=== PATIENT | female | born 1955 | race Caucasian/White ===

== ENCOUNTER 2016-09-27 09:42 | Inpatient (IN) | payer OTHER ==
--- NOTE | ~2016-09-27 | CN ---
Consultation Report [facility] [address] [place]. [address] NAME: HAROON PRITCHETT : 51 STATUS : ADM IN PAT#: [id number] AGE: 61 ADM/REG DATE : 09/27/16 MR#: [id number] REPORT SERV DATE: 10/02/16 DICTATED BY: JR. CAMPO WILLIAM JOHN DATE: 10/02/16 REPORT STATUS : Draft TRANSCRIBED BY: MARQUES DATE: 10/02/16 INTERNAL MEDICINE CONSULTATION DATE OF CONSULTATION: REASON FOR REQUEST: Diabetes management. HISTORY OF PRESENT ILLNESS: This is a 61-year-old female with history of diabetes mellitus type 2 admitted on 09/27/[address] Sanchez for an elective cardiac catheterization after a positive stress test done outpatient. Catheterization was performed on 09/27/2016 and showed greater 95% LAD proximal lesion and an 80% mid right coronary artery lesion non-amenable to catheter based intervention due to tortuous vessels. The patient was evaluated by Dr. Naik of Cardiovascular Thoracic surgery and underwent bypass grafting on 10/01/2016 with left internal mammary to LAD, a saphenous vein graft to the diagonal 1, and a saphenous vein graft to the right coronary artery. Intraoperative transesophageal echocardiogram showed good ejection fraction. The patient was extubated on 10/01/2016 and currently is vomiting when eating. The patient has a poor appetite and has no other complaints. As an outpatient, the patient is on 50 units of glargine insulin plus sliding scale insulin. PAST MEDICAL HISTORY: Includes: 1. Diabetes mellitus type 2. 2. Hypertension. 3. Hypercholesterolemia. 4. Gastroesophageal reflux disease. 5. Hiatal hernia. 6. History of hysterectomy. 7. Left carotid disease. 8. Anxiety. HOME MEDICATIONS: Included: 1. Aspirin 325 daily. 2. BuSpar 7.5 mg one-half tablet twice a day. 3. Zyrtec 10 mg at the hour of sleep. 4. Celexa 10 mg at the hour of sleep. 5. Estradiol 0.1 mg topically weekly. 6. NovoLog sliding scale. 7. Glargine 50 units at the hour of sleep. 8. Imdur 15 mg daily. 9. Metformin 1 g twice a day. 10.Metoprolol 25 b.i.d. 11.Multivitamin one tablet daily. 12.Omeprazole 40 twice a day. 13.Ramipril 5 mg at the hour of sleep. Consultation Report [facility] [address] [place]. [address] NAME: HAROON PRITCHETT : 51 STATUS : ADM IN PAT#: [id number] AGE: 61 ADM/REG DATE : 09/27/16 MR#: [id number] REPORT SERV DATE: 10/02/16 DICTATED BY: JR. CAMPO WILLIAM JOHN DATE: 10/02/16 REPORT STATUS : Draft TRANSCRIBED BY: MARQUES DATE: 10/02/16 14.Simvastatin 40 mg at the hour of sleep. ALLERGIES: PENICILLIN, MORPHINE, CODEINE, AND LEVAQUIN. FAMILY HISTORY: Father at age 61 of coronary artery disease and myocardial infarction. Mother at age 72 of sudden thought to be due to a stroke, also had hypertension. SOCIAL HISTORY: She is . Lives in [place] with her . She has a 21 pack year smoking history quitting 9 years ago. She denies alcohol or illicit drugs. She is a worker at a [employer]. REVIEW OF SYSTEMS: Review of systems is negative in all 12 systems reviewed except does admit to sore throat after intubation. Also has occasional palpitations, nausea, vomiting, depression without suicidal or homicidal ideation. PHYSICAL EXAMINATION: VITAL SIGNS: Temperature 99.2, blood pressure 115/62, heart rate 72, respiratory rate 23 on 5 L nasal cannula. Central venous pressure is 13. She is on an insulin drip at 6 units/hour and off pressors. GENERAL: The patient is alert and oriented, in no acute distress. HEENT: Her pupils are equal, round, and reactive to light. Extraocular motion intact. Sclerae anicteric. Oropharynx clear. NECK: Supple. There is no jugular venous distention, thyromegaly, or bruits. LUNGS: Scattered crackles. There was a chest tube on the left and a sub-xiphoid drain in place. ABDOMEN: Abdomen is soft, obese, nontender. Bowel sounds present. EXTREMITIES: Show no clubbing, cyanosis, edema. She has support hose on. NEUROLOGIC: Cranial nerves 2-12 intact. Strength and sensation were full and equal throughout. LYMPHATICS: Lymph node survey is negative in cervical and supraclavicular regions. PSYCHIATRIC: Mood and affect were appropriate. LABORATORY DATA: White count of 18.7, hemoglobin 10, platelets 258. Sodium 145, potassium 4.6, chloride 112, bicarb 25, BUN 17, creatinine 1, glucose 144, magnesium 2.2. Calcium 8.8. Chest x-ray showed vascular congestion. ASSESSMENT AND PLAN: A 61-year-old female with: 1. Diabetes mellitus type 2 on 50 units of glargine insulin home, not eating and vomiting with meals currently, therefore hesitate to convert to subcu insulin until reliable diet is established. We will continue insulin drip for tonight and readdress in the morning. 2. Hypertension. Continue current medications. Consultation Report [address] [place]. [address] NAME: HAROON PRITCHETT : 51 STATUS : ADM IN [facility]#: [id number] AGE: 61 ADM/REG DATE : 09/27/16 MR#: [id number] REPORT SERV DATE: 10/02/16 DICTATED BY: JR. CAMPO WILLIAM JOHN DATE: 10/02/16 REPORT STATUS : Draft TRANSCRIBED BY: MARQUES DATE: 10/02/16 3. Dyslipidemia. Continue statin. I will follow this patient with you. WJF/MARQUES Wade Campo Jr, MD / [id number] CC: Magen Sanchez MD
--- NOTE | ~2016-09-27 | CN ---
Consultation Report [facility] [address] [place]. [address] NAME: HAROON PRITCHETT : 51 STATUS : ADM IN PAT#: [id number] AGE: 61 ADM/REG DATE : 09/27/16 MR#: [id number] REPORT SERV DATE: 09/29/16 DICTATED BY: GARRISON RODRIGUEZ DATE: 09/29/16 REPORT STATUS : Draft TRANSCRIBED BY: MODL DATE: 09/29/16 CONSULTATION DATE OF CONSULTATION: 09/29/2016 REASON FOR CONSULTATION: Coronary artery disease requiring coronary revascularization. BRIEF HISTORY: This is a 61-year-old obese white female with a history of insulin-dependent diabetes mellitus type 2. In August of this year, she began having exertional chest pressure and fatigue and was sent for a cardiac stress test. Cardiac stress test performed 08/2016 revealed SVT, but no chest pain and moderate risk nuclear stress. Because of this, she was brought in for elective cardiac catheterization. This was performed on 09/27/2016 and she was found to have significant disease involving the left anterior descending artery at the first diagonal takeoff. There is also significant disease in the right coronary artery. Because of this, we were asked to see her for consideration for coronary artery revascularization. PAST MEDICAL HISTORY: Includes hypertension, hyperlipidemia, obesity with BMI of 36, insulin dependent diabetes mellitus type 2, gastroesophageal reflux disease, hiatal hernia, history of tobacco abuse, moderate left carotid disease, and anxiety. PAST SURGICAL HISTORY: Includes hysterectomy. FAMILY HISTORY: Significant for her father having a heart attack at age 50 and dying at 61 as a result of heart problems. Her mother had a sudden at age 72 from stroke and had hypertension. She had a brother who had mesothelioma at age 59 as well as heart failure. SOCIAL HISTORY: The patient is and lives here locally. She did smoke for 21-pack years, but quit approximately nine years ago. She denies any alcohol use or other drug use. ALLERGIES: PENICILLIN, LEVAQUIN, MORPHINE, AND CODEINE. HOME MEDICATIONS: Include omeprazole 40 mg p.o. twice daily, simvastatin 40 mg p.o. daily, BuSpar 7.5 mg one-half tablet three times daily, Celexa 10 mg daily, ramipril 5 mg daily, Zyrtec 10 mg daily, aspirin 325 mg daily, multivitamin one p.o. daily, NovoLog subcu per sliding scale before meals, metformin 500 mg p.o. twice daily, estradiol patch 0.1 mg twice weekly as well as Basaglar insulin once daily. REVIEW OF SYSTEMS: Significant for fatigue and chest pain, indigestion, heart fluttering. Complete 12-point review of systems done. All other systems negative except the above-mentioned pertinent positives in history of present illness. PHYSICAL EXAMINATION: Consultation Report [address] [place]. [address] NAME: HAROON PRITCHETT : 51 STATUS : ADM IN PAT#: [id number] AGE: 61 ADM/REG DATE : 09/27/16 MR#: [id number] REPORT SERV DATE: 09/29/16 DICTATED BY: GARRISON RODRIGUEZ DATE: 09/29/16 REPORT STATUS : Draft TRANSCRIBED BY: MARQUES DATE: 09/29/16 GENERAL: A 61-year-old white female, alert, in no acute distress. Appears her stated age. CONSTITUTIONAL/VITAL SIGNS: Normal sinus rhythm in 60s and 70s. Afebrile, blood pressure 156/69, ox saturation 95% on room air. HEAD, EARS, EYES, NOSE, AND THROAT: Normocephalic, atraumatic. Pupils equal, round and reactive to light. Ears, nose, and throat without drainage, lesions, or exudates noted. NECK: Supple. No lymphadenopathy, JVD, or bruits noted. Trachea midline. No obvious goiter. CHEST: Symmetrical bilateral movement. No chest wall deformities noted. CARDIOVASCULAR: Revealed regular rate and rhythm. S1, S2. No gallop, murmur, or rub. RESPIRATORY: Lungs are clear to auscultation anteriorly bilaterally. ABDOMEN: Soft, nontender, nondistended. Positive bowel sounds in all four quadrants. No hepatosplenomegaly. : The patient voids without difficulty, otherwise deferred. MUSCULOSKELETAL: Without obvious kyphosis or scoliosis noted. No significant bony abnormalities. Normal range of motion in all four extremities. NEURO: All 12 cranial nerves intact. No focal neurologic deficits noted. She is alert, oriented x3. SKIN: Warm and dry with no breakdown or lesions noted. Normal turgor. EXTREMITIES: Without clubbing, cyanosis, or edema. 3+ pulses bilaterally. PSYCH: Normal mood and affect. Pleasant. Answers all questions appropriately. HEMATOLOGIC/LYMPHATIC: Without any obvious petechiae or ecchymosis noted. There is no supraclavicular, axillary, or cervical lymphadenopathy noted. DATA: Labs dated 09/29/2016, sodium 139, potassium 4.2, BUN 11, creatinine 0.81. White blood count 13.4, hemoglobin 11.4, hematocrit 35.6, platelets 285. Cardiac cath performed 09/27/2017 showing significant disease involving the left anterior descending artery at the takeoff of the first diagonal branch. There is also significantly diseased right coronary artery. There is normal left ventricular ejection fraction. Cardiac stress test dated 09/09/2016 showing no anginal chest pain. No EKG changes, but distal anterior ischemia with left ventricular ejection fraction 60%. Overall moderate risk study. Carotid ultrasound performed 09/09/2016 showing grade 2 disease in the left carotid and grade 1 in the right carotid. Echocardiogram performed 09/09/2016 showing no significant valvular regurgitation, left ventricular ejection fraction of 55%. STS risk score specific to this patient, mortality 0.8-6%, any mortality morbidity 10.098%, long length of stay 4.49% short length of stay 45.6%, renal failure 1.71%, permanent stroke 0.7%, deep sternal wound 0.8%, respiratory failure 3.44%, prolonged ventilation 0.7%. PROBLEM LIST: 1. Two-vessel coronary artery disease with preserved left ventricular ejection fraction. 2. Insulin-dependent diabetes mellitus, type 2. 3. Hypertension. 4. Hyperlipidemia. Consultation Report [address] [place]. [address] NAME: HAROON PRITCHETT : 51 STATUS : ADM IN [facility]#: [id number] AGE: 61 ADM/REG DATE : 09/27/16 MR#: [id number] REPORT SERV DATE: 09/29/16 DICTATED BY: GARRISON RODRIGUEZ DATE: 09/29/16 REPORT STATUS : Draft TRANSCRIBED BY: MODDiana DATE: 09/29/16 5. Obesity. 6. Gastroesophageal reflux disease with hiatal hernia. 7. Anxiety. IMPRESSION AND PLAN: A 61-year-old obese white female with insulin-dependent diabetes, hypertension, and hyperlipidemia, who has been having exertional chest pain as well as fatigue. Cardiac cath shows two-vessel coronary artery disease with preserved left ventricular ejection fraction. There is no significant valvular disease by echocardiogram. STS risk score specific to her were reviewed with her as noted above. The surgery was discussed with her in detail, and she is willing to proceed. We will go ahead and start preoperative preps as well as strict hemoglobin A1c and iron saturations. We will tentatively plan for surgery for this Friday barring no other contraindication. DICTATED BY: MALENA Bartlett/MARQUES Garrison Rodriguez MD / [id number] CC: MD Shaun Pelaez M.D.
--- NOTE | ~2016-09-27 | OP ---
Record Of Count includes the [facility] [address] [facility] [place]. [address] NAME: HAROON PRITCHETT : 51 STATUS : ADM IN PAT#: [id number] AGE: 61 ADM/REG DATE : 09/27/16 MR#: [id number] REPORT SERV DATE: 10/02/16 DICTATED BY: GARRISON RODRIGUEZ DATE: 10/01/16 REPORT STATUS : Draft TRANSCRIBED BY: MODL DATE: 10/01/16 DATE OF PROCEDURE: 10/01/2016 SURGEON: Garrison Rodriguez MD DATA PROCESSING CONTROL CLERK: Chani Pelayo. ANESTHESIOLOGIST: Liam Shahid MD. PREOPERATIVE DIAGNOSES: 1. Unstable angina. 2. Severe two-vessel coronary artery disease. 3. Diabetes mellitus. 4. Hypertension. 5. Hyperlipidemia. 6. Obstructive sleep apnea. 7. Chronic anemia. 8. Morbid obesity. POSTOPERATIVE DIAGNOSES: 1. Unstable angina. 2. Severe two-vessel coronary artery disease. 3. Diabetes mellitus. 4. Hypertension. 5. Hyperlipidemia. 6. Obstructive sleep apnea. 7. Chronic anemia. 8. Morbid obesity. OPERATION PROCEDURE PERFORMED: 1. Median sternotomy. 2. Extracorporeal circulation. 3. Urgent coronary artery bypass grafting x3, left internal mammary artery, left anterior descending, reverse greater saphenous vein graft to D1, reverse greater saphenous vein graft to RCA. 4. Transesophageal echocardiogram. 5. Endoscopic vein harvest, left leg. 6. Rigid external fixation of the sternum using Acquia SternaLock César system. 7. Prevena dressing placement. COMPLICATIONS: None. TUBES/DRAINS: A 24-[place] Sam to the left pleural space. A 32-[place] Citizen straight mediastinal chest tube. V-wires were placed. POSTOPERATIVE CONDITION: Stable to CVICU. Record Of Count includes the [facility] [address] [facility] [place]. [address] NAME: HAROON PRITCHETT : 51 STATUS : ADM IN PAT#: [id number] AGE: 61 ADM/REG DATE : 09/27/16 MR#: [id number] REPORT SERV DATE: 10/02/16 DICTATED BY: GARRISON RODRIGUEZ DATE: 10/01/16 REPORT STATUS : Draft TRANSCRIBED BY: MODL DATE: 10/01/16 DETAILS OF CARDIOPULMONARY BYPASS: Cross-clamp time 48 minutes. Total cardiopulmonary bypass time was 64 minutes. INTRAOPERATIVE FINDINGS: Echo showed normal EF, trace MR, tiny PFO. Postprocedure, there were no changes. ANATOMIC FINDINGS: These were good targets, good conduit, good ventricle. The MELARA was approximately 2 mm in diameter. The vein was 4 mm to 5 mm in diameter. DETAILS OF CARDIOPULMONARY BYPASS GRAFTIN. Graft #1, left internal mammary artery, left anterior descending, this was 1.75 mm target. 2. Graft #2, reverse greater saphenous vein graft to D1, this was 1.75 mm target. 3. Graft #3, reverse greater saphenous vein graft to distal RCA, this was diminutive RCA harvest, approximately 1.75 mm. There were excellent Dopplers both pre and post protamine. DETAILS OF RIGID EXTERNAL FIXATION OF THE STERNUM: One 100-degree plate was used in the manubrium with four 14-mm screws, two X plates were used in the body of the sternum with eight 14-mm screws apiece. INDICATIONS FOR PROCEDURE: Ms. Pritchett is a 61-year-old female, admitted after workup revealed reversible ischemia on stress test. She underwent heart catheterization and was found to have severe two-vessel disease with LAD bifurcation disease and disease. She was referred for cardiopulmonary bypass. Risks, benefits, and alternatives were discussed with patient including but not limited to, bleeding, infection, stroke, , heart attack, need for future operations. All questions were answered. DETAILS OF PROCEDURE: The patient was brought to the operating room, and placed supine on the operating room table. After satisfactory induction of general endotracheal anesthesia, she was prepped and draped in usual sterile fashion. Working simultaneously, endoscopic vein harvest was performed from the left leg, and median sternotomy was performed. Skin and subcutaneous tissues were divided, clavipectoral fascia was divided. The sternum was divided in the midline. Sternal retractor was placed. Thymic tissue was divided in the midline up to the innominate vein. The pericardium was opened in the midline and T'd at the diaphragm. A Rultract retractor was then placed and the internal mammary artery was harvested in a pedicle fashion from its takeoff into the subclavian vein to the bifurcation of the diaphragm. This was somewhat difficult given the patient's body habitus, given her thick chest wall and ample mammary glands. Once the pedicle was successfully dissected and harvested, systemic heparinization was achieved. After 3 minutes, the pedicle was clipped and divided. The bifurcation of the diaphragm was infiltrated with papaverine. The Rultract retractor was removed. A 24-[place] Sam was placed in the left pleural space and exteriorized. A sternal retractor was placed and a pericardial well was created. Ascending aortic cannulation was achieved at the base of the innominate artery, dual stage venous cannula was placed through pursestring in the right atrial side wall. Antegrade root vent Record Of Operation [facility] [address] [place]. [address] NAME: HAROON PRITCHETT : 51 STATUS : ADM IN [facility]#: [id number] AGE: 61 ADM/REG DATE : 09/27/16 MR#: [id number] REPORT SERV DATE: 10/02/16 DICTATED BY: GARRISON RODRIGUEZ DATE: 10/01/16 REPORT STATUS : Draft TRANSCRIBED BY: MARQUES DATE: 10/01/16 cardioplegia tack was placed. The conduit was brought up and prepared for bypass. The internal mammary artery was brought down through a wide V in the pericardium. The cardiopulmonary bypass was initiated after documentation of an adequate ACT. Targets were inspected and felt to be as mentioned in the findings. The cross-clamp was brought up and the heart was arrested with cold antegrade cardioplegia, switching to cold antegrade cardioplegia every 15 to 20 minutes throughout the remainder of the cross clamp. The grafts were performed as mentioned in the findings. All distal anastomoses were done with 8-0 Surgipro. The heart was filled, the veins were cut to length, spatulated. Proximal aortotomies were performed, enlarged with a 5.2 mm punch in a running continuous anastomosis was performed using 6-0 Prolene. Vein graft markers were placed. Internal mammary artery was brought down through a wide V in the pericardium and was anastomosed to the anterior surface of the LAD using 8-0 Surgipro. The pedicle was attached to the epicardium of the heart in two places. Bulldog was removed and there was excellent Doppler flow in the graft and both proximal and distal to the anastomosis in the LAD. Vein grafts were de-aired. The cross-clamp was removed. Ventricular pacing wires were placed and the patient returned to spontaneous rhythm, was able to be weaned from cardiopulmonary bypass on inotropic support. Protamine was administered. The patient was decannulated. All cannulation sites were oversewn with 4 0 Prolene. There were excellent Doppler signals both pre and post protamine. Thymic tissue was loosely reapproximated over the ascending aorta and the right ventricle. A 32-[place] Citizen chest tube was placed under the sternum. Hemostasis was achieved. The sternum was reapproximated using stainless steel sternal wires, some of these were double wires. After the wires were tightened, mild pectoral flaps were raised in order to allow the plates to be placed. One 100-degree plate was placed in the body of manubrium between wires 2 and 3, two X plates were placed on the body of the sternum between the sternal wires, these were anchored in position using 14 mm screws. The clavipectoral fascia was then reapproximated using running #1 Stratafix, subcutaneous tissues were closed in 3 layers using running #1 Stratafix and the skin was closed using 2-0 Quill. Prevena dressing was placed. The patient was transferred to CVICU in critical stable condition. C/MODL Garrison Rodriguez MD / [id number] CC: MD Magen Hutson MD
--- NOTE | ~2016-09-27 | DS ---
Discharge Summary [facility] [address] [place]. [address] NAME: HAROON PRITCHETT : 51 STATUS : DIS IN PAT#: [id number] AGE: 61 ADM/REG DATE : 09/27/16 MR#: [id number] REPORT SERV DATE: 10/22/16 DICTATED BY: GARRISON RODRIGUEZ DATE: 10/21/16 REPORT STATUS : Draft TRANSCRIBED BY: MARQUES DATE: 10/21/16 Data Collection from hospitalization DISCHARGE DIAGNOSES: 1. Coronary artery disease, status post coronary artery bypass grafting. 2. Hypertension. 3. Hyperlipidemia. 4. Diabetes mellitus. 5. Borderline morbid obesity. 6. Gastroesophageal reflux disease. 7. History of hiatal hernia. 8. Former smoker. CONSULTATIONS: 1. Magen Sanchez MD. 2. Wade Campo Jr, MD. PROCEDURES PERFORMED: 1. Cardiac catheterization and percutaneous coronary intervention on 09/27/2016. 2. Median sternotomy; extracorporeal circulation; urgent coronary artery bypass grafting x3 with left internal mammary artery to the left anterior descending artery, reverse saphenous vein graft to the diagonal 1, reverse greater saphenous vein graft to the right coronary artery; transesophageal echocardiogram; endoscopic vein harvest from the left leg; rigid external fixation of the sternum using Minka SternaLock César System; and Prevena dressing placement on 10/01/2016. 3. Vein mapping of the bilateral lower extremities on 10/01/2016. MEDICATIONS: Aspirin 81 mg daily, Lipitor 40 mg at bedtime, BuSpar half tablet twice a day, Zyrtec 10 mg at bedtime, Celexa 10 mg at bedtime, Plavix 75 mg daily, Vivelle 0.1 mg topically weekly, [place] 10/325 half to every six hours as needed, NovoLog FlexPen as instructed, Lantus 58 units subcutaneously every day at bedtime, Glucophage 1000 mg with breakfast and supper, Lopressor 25 mg twice a day, multivitamins one tablet daily, Prilosec 40 mg twice a day, and Altace 5 mg at bedtime. CONDITION AT DISCHARGE: Stable. DISPOSITION: The patient was discharged home on a low-cholesterol, low-sodium, 1800-calorie cardiac/diabetic diet with activities as instructed. She would follow up with me on 10/29/2016 and would follow up with Dr. Magen Sanchez three weeks following discharge. She would follow up at cardiac rehab on 11/14/2016. HOSPITAL COURSE: This is a 61-year-old female who has a history of insulin-dependent type 2 diabetes mellitus. In August of this year, she began having exertional chest pressure and fatigue and was sent for a cardiac stress test. Cardiac stress test performed in August revealed supraventricular tachycardia, but no chest pain and moderate risk nuclear stress test. It was felt that she would need to undergo an elective cardiac catheterization. She was seen by Dr. Magen Sanchez. The patient's symptoms apparently had been present for several years and that had worsened recently. She had a normal myocardial perfusion imaging Discharge Summary [address] [place]. [address] NAME: HAROON PRITCHETT : 51 STATUS : DIS IN PAT#: [id number] AGE: 61 ADM/REG DATE : 09/27/16 MR#: [id number] REPORT SERV DATE: 10/22/16 DICTATED BY: GARRISON RODRIGUEZ DATE: 10/21/16 REPORT STATUS : Draft TRANSCRIBED BY: MARQUES DATE: 10/21/16 study four years ago. Repeat perfusion study recently was abnormal. At this time, the patient was without chest pain or unusual dyspnea. She was admitted to the hospital for further evaluation and treatment. Upon admission, she was taken to the cardiac garage laborer by Dr. Magen Sanchez where she underwent the above-mentioned procedure. She tolerated this well, and there were no complications. Her cardiac catheterization revealed significant disease involving the left anterior descending artery at the first diagonal takeoff. There was also significant disease in the right coronary artery. It was felt that she would need to undergo coronary artery bypass grafting. On postop day #1, she had no chest pain. Her lungs were clear. Her abdomen was soft and nontender. She had no edema. Plans were being made to proceed with surgical intervention. Metoprolol was increased. She was in a normal sinus rhythm. Heparin drip continued. On 10/01/2016, she underwent vein mapping of the bilateral lower extremities. She was taken to the operating room where she underwent the above-mentioned procedure. She tolerated this well, and there were no complications. The following day, she had no new complaints. She had no edema. She was doing well postoperatively. She was off pressors and inotropes. She was seen by Dr. Wade Campo Jr, regarding diabetes management. The patient had a poor appetite, but no other complaints. As an outpatient, she is on glargine insulin plus sliding scale insulin. Chest x-ray did show some vascular congestion. Insulin drip was going to be continued that evening. We were hesitant to convert to subcu insulin until a reliable diet was established. Her current blood pressure medications were continued as well as her current statin therapy. On 10/03/2016, she had no complaints except for some moderate postsurgical pain. Her current management continued. We encouraged her to increase her ambulation. She still had some nausea, but no vomiting. Blood pressure was controlled. Insulin drip was continued. Adjustments were made to her diabetic regimen. On 10/04/216, she seemed to be eating a little better. IV fluids were continued. We encouraged her to mobilize. Her nausea and vomiting improved. The next day, she was feeling okay. Her pain was controlled. She was in a sinus rhythm. Amiodarone, metoprolol, aspirin, and statin were continued. We encouraged her to increase her activity. Discharge planning was performed. Levemir was increased. On 10/06/2016, she was alert and cooperative. She had no edema. Her white count was 22. She said she was feeling well. She had no dyspnea or chest pain. Discharge instructions were given. Her white count decreased to 14.2. Discharge instructions were given. Due to her improved and stable condition, she was discharged home with the above- stated instructions. Information collected by: Jazmin Haynes I submit the above information as my discharge summary. TG/MODL Garrison Rodriguez MD / [id number] Discharge Summary [address] [address] NAME: HAROON PRITCHETT : 51 STATUS : DIS IN PAT#: [id number] AGE: 61 ADM/REG DATE : 09/27/16 MR#: [id number] REPORT SERV DATE: 10/22/16 DICTATED BY: GARRISON RODRIGUEZ DATE: 10/21/16 REPORT STATUS : Draft TRANSCRIBED BY: MARQUES DATE: 10/21/16 CC: MD Shaun Pelaez M.D.
--- NOTE | ~2016-09-27 | HP ---
History And Physical [address] [place]. [address] NAME: HAROON PRITCHETT : 51 STATUS : REG REF PAT#: [id number] AGE: 61 ADM/REG DATE : 09/27/16 MR#: [id number] REPORT SERV DATE: 09/27/16 DICTATED BY: RICA SANCHEZ DATE: 09/27/16 REPORT STATUS : Draft TRANSCRIBED BY: MODL DATE: 09/27/16 DATE OF ADMISSION: 09/27/2016 CARDIOLOGY ADMISSION HISTORY AND PHYSICAL IDENTIFYING DATA: The patient is a 61-year-old woman with a history of type 2 diabetes. CHIEF COMPLAINT: The patient is admitted following elective cardiac catheterization for angina. HISTORY OF PRESENT ILLNESS: Ms Pritchett is a pleasant 61-year-old woman who was referred to Dr. Agustin Thomas for evaluation of exertional pressure type chest pain. The patient was referred for a myocardial perfusion imaging study which demonstrated anterolateral ischemia. She was therefore referred for cardiac catheterization. The patient's symptoms apparently have been present for several years, but have worsened recently. The patient had a normal myocardial perfusion imaging study four years ago. Her repeat perfusion study performed more recently was abnormal, and therefore, the patient was referred for cardiac catheterization. At this time, the patient is without chest pain or unusual dyspnea. PAST MEDICAL HISTORY: 1. Type 2 diabetes. 2. Hypertension. 3. Dyslipidemia. 4. Borderline morbid obesity. 5. Gastroesophageal reflux disease. 6. History of hiatal hernia. SURGICAL HISTORY: Noncontributory. FAMILY HISTORY: There is a positive family history of early coronary heart disease: The patient's father suffered myocardial infarction at age 50. SOCIAL HISTORY: The patient has a distant history of tobacco use, but currently denies cigarette smoking, alcohol use, or substance use. ALLERGIES: THE PATIENT HAS DOCUMENTED ALLERGIES TO PENICILLIN, MORPHINE, CODEINE, AND LEVOFLOXACIN. HOME MEDICATIONS: 1. Aspirin 325 mg p.o. daily. 2. BuSpar 7.5 mg one-half tablet twice daily. 3. Zyrtec 10 mg p.o. q.h.s. 4. Celexa 10 mg p.o. q.h.s. 5. Estradiol 0.1 mg topical weekly. 6. NovoLog sliding scale insulin. 7. Insulin glargine 50 units subcutaneously q.h.s. History And Physical [facility] [address] [place]. [address] NAME: HAROON PRITCHETT : 51 STATUS : REG REF PAT#: [id number] AGE: 61 ADM/REG DATE : 09/27/16 MR#: [id number] REPORT SERV DATE: 09/27/16 DICTATED BY: RICA SANCHEZ DATE: 09/27/16 REPORT STATUS : Draft TRANSCRIBED BY: MARQUES DATE: 09/27/16 8. Isosorbide mononitrate 15 mg p.o. daily. 9. Metformin 1 g p.o. twice daily. 10.Metoprolol tartrate 25 mg p.o. twice daily. 11.Multivitamin one tablet daily. 12.Omeprazole 40 mg p.o. twice daily. 13.Ramipril 5 mg p.o. q.h.s. 14.Simvastatin 40 mg p.o. q.h.s. REVIEW OF SYSTEMS: A complete 10-system review was performed. This is noncontributory except for the pertinent positives and negatives noted in the history of present illness above. PHYSICAL EXAMINATION: VITAL SIGNS: Temperature is 98.2 degrees Fahrenheit, blood pressure is 154/70 mmHg, respirations 16, oxygen saturation is 96% on room air. GENERAL: The patient is a borderline morbidly obese white woman, in no acute distress. EYES: PERRL, EOMI, clear conjunctiva. HEAD/MNT: NCAT with moist mucous membranes and grossly normal hard and soft palate. NECK: Supple with no obvious thyromegaly or lymphadenopathy CARDIOVASCULAR: There is a regular rhythm with a normal S1 and a physiologically split second heart sound. No significant murmurs, rubs, or gallops are noted. Jugular venous pressure appears grossly normal. PULMONARY: Clear to auscultation bilaterally with no wheezing, rales, rhonchi, or dullness to percussion. ABDOMINAL: Soft, obese, nontender with no gross organomegaly noted. EXTREMITIES: No clubbing, cyanosis or edema. MUSCULOSKELETAL: Grossly normal strength and range of motion in all extremities INTEGUMENTARY: Skin appears intact with no bruises, wounds or active lesions noted NEURO/PSYC: Alert and oriented x3, with no dysarthria, facial droop or lateralizing weakness noted. STUDIES: 12-lead EKG: The 12-lead EKG shows normal sinus rhythm with no significant abnormality. LABORATORY DATA: CBC shows a white blood cell count of 9.7, hemoglobin 11.3, hematocrit 35, platelets 317. Chemistry profile shows a sodium of 139, potassium 4.6, chloride is 104, BUN is 11, creatinine is 0.77, glucose is 212. Total cholesterol 140, HDL 31, LDL 86. Cardiac catheterization: The patient underwent cardiac catheterization today. Please see official report for full details. In summary, the patient had a greater than 95% lesion of the proximal left anterior descending involving the first diagonal branch. There was also an 80% lesion of the mid right coronary artery, which is a moderate-sized codominant vessel. An attempt was made at percutaneous coronary intervention to the LAD and first diagonal branch. Due to extreme tortuosity of the target lesion, a guidewire could not be passed into the left anterior descending despite extensive efforts. Left ventricular end-diastolic pressure is mildly History And Physical [address] [address] NAME: HAROON PRITCHETT : 51 STATUS : REG REF PAT#: [id number] AGE: 61 ADM/REG DATE : 09/27/16 MR#: [id number] REPORT SERV DATE: 09/27/16 DICTATED BY: RICA SANCHEZ DATE: 09/27/16 REPORT STATUS : Draft TRANSCRIBED BY: MARQUES DATE: 09/27/16 elevated at 18 mmHg. ASSESSMENT AND PLAN: 1. Unstable angina with the proximal left anterior descending disease: Options for further coronary intervention versus coronary artery bypass grafting surgery were discussed with the patient. The patient is agreeable to proceeding with coronary artery bypass grafting surgery. The patient will be evaluated over the weekend by the Thoracic Surgery Service. Given the severe proximal left anterior descending stenosis, as well as the fact that percutaneous coronary intervention was unsuccessful, I would recommend the patient be monitored in the hospital until bypass surgery if this is feasible. The patient will be treated with an IV heparin drip. She will continue her home cardiac medication regimen. 2. Type 2 diabetes: The patient will be treated with sliding scale insulin. Hold metformin. [facility]/MARQUES Rica Sanchez MD / [id number] CC: MD Shaun Pelaez M.D.
[~2016-09-27 09:42] MED LIST: ALTA5 PO; ASA5GR PO; BUSPIRONE7.5 MG PO; CELEXA10 PO; COMP10B PO; GLUCOPHAGE1000 MG PO; HUMALOGPEN SC; IMDUR30 PO; INSULIN GLARGINE; LANTUSCART SC; LOP25 PO; MULTIPLE VIT PO; NOVOPEN SC; PERCOCET1 TA2 PO; PRILOSEC40 MG PO; SINGULAIR1 PO; VIVELLE SY0.1 MG/24 TOP; VIVELLE-DOT0.025 MG TOP; ZOCOR40 PO; ZYRTEC ALLGY10 MG PO
[2016-09-27 10:39] LABS: BASOPHILS 0.6 %; BASOPHILS ABSOLUTE 0.06 10/3/uL (0.0-0.16); EOSINOPHILS 2.9 %; EOSINOPHILS ABSOLUTE 0.28 10/3/uL (0.0-0.53); HEMATOCRIT 34.7 % (36.0-48.0); HEMOGLOBIN 11.3 g/dL (12.0-16.0); IMMATURE GRANULOCYTES 0.3 %; IMMATURE GRANULOCYTES ABSOLUTE 0.03 10/3/uL (0.0-0.11); LYMPHOCYTES 28.7 %; LYMPHOCYTES ABSOLUTE 2.78 10/3/uL (0.67-4.30); MEAN CORPUS HGB CONC 32.6 g/dL (32.0-36.0); MEAN CORPUSCULAR HEMOGLOB 28.1 pg (26.0-34.0); MEAN CORPUSCULAR VOLUME 86.3 fL (80-100); MEAN PLATELET VOLUME 10.7 fL (9.2-13.0); MONOCYTES ABSOLUTE 0.58 10/3/uL (0.21-1.20); NEUTROPHILS 61.5 %; NEUTROPHILS ABSOLUTE 5.97 10/3/uL (2.02-8.40); PLATELET COUNT 317 10/3/uL (150-400); RBC DISTRIBUTION WIDTH 14.8 % (12.0-16.0); RED CELL COUNT 4.02 10/6/uL (4.0-5.6); WHITE BLOOD CELLS 9.7 10/3/uL (4.5-10.5)
[2016-09-27 10:40] LABS: MANUAL DIFF NO %
[2016-09-27 10:55] LABS: BUN (BLOOD UREA NITROGEN) 11 MG/DL (6-23); CHLORIDE, SERUM 104 MMOL/L (96-112); CHOL/HDL RATIO(NOT ORDER) 4.5 (0-5); CHOLESTEROL 140 MG/DL (< 200); CO2 (CARBON DIOXIDE) 28 MMOL/L (24-34); CREATININE 0.77 MG/DL (0.55-1.02); GFR AFRICAN AMERICAN 95 ML/MIN (>=60); GFR NON AFRICAN AMERICAN 82 ML/MIN (>=60); GLUCOSE, SERUM 212 MG/DL (60-99); HDL CHOLESTEROL 31 MG/DL (> 49); LDL CHOLESTEROL 86 MG/DL (< 130); NON-HDL CHOLESTEROL 109 MG/DL (< 160); POTASSIUM, SERUM 4.6 MMOL/L (3.5-5.3); SODIUM, SERUM 139 MMOL/L (135-148); TRIGLYCERIDE 117 MG/DL (< 150)
[2016-09-28 05:10] LABS: BASOPHILS 0.5 %; BASOPHILS ABSOLUTE 0.06 10/3/uL (0.0-0.16); EOSINOPHILS 3.7 %; EOSINOPHILS ABSOLUTE 0.43 10/3/uL (0.0-0.53); HEMATOCRIT 33.2 % (36.0-48.0); HEMOGLOBIN 10.7 g/dL (12.0-16.0); IMMATURE GRANULOCYTES 0.3 %; IMMATURE GRANULOCYTES ABSOLUTE 0.03 10/3/uL (0.0-0.11); LYMPHOCYTES 35.2 %; LYMPHOCYTES ABSOLUTE 4.04 10/3/uL (0.67-4.30); MEAN CORPUS HGB CONC 32.2 g/dL (32.0-36.0); MEAN CORPUSCULAR HEMOGLOB 28.2 pg (26.0-34.0); MEAN CORPUSCULAR VOLUME 87.6 fL (80-100); MONOCYTES 7.3 %; MONOCYTES ABSOLUTE 0.84 10/3/uL (0.21-1.20); NEUTROPHILS ABSOLUTE 6.07 10/3/uL (2.02-8.40); PLATELET COUNT 303 10/3/uL (150-400); RBC DISTRIBUTION WIDTH 14.9 % (12.0-16.0); RED CELL COUNT 3.79 10/6/uL (4.0-5.6); WHITE BLOOD CELLS 11.5 10/3/uL (4.5-10.5)
[2016-09-28 05:13] LABS: MANUAL DIFF NO %
[2016-09-28 05:28] LABS: BUN (BLOOD UREA NITROGEN) 10 MG/DL (6-23); CALCIUM, SERUM 8.7 MG/DL (8.5-10.4); CHLORIDE, SERUM 106 MMOL/L (96-112); CO2 (CARBON DIOXIDE) 25 MMOL/L (24-34); CREATININE 0.69 MG/DL (0.55-1.02); GFR AFRICAN AMERICAN 107 ML/MIN (>=60); GFR NON AFRICAN AMERICAN 93 ML/MIN (>=60); GLUCOSE, SERUM 182 MG/DL (60-99); POTASSIUM, SERUM 4.1 MMOL/L (3.5-5.3); SODIUM, SERUM 139 MMOL/L (135-148)
[2016-09-29 01:36] LABS: HEMATOCRIT 35.6 % (36.0-48.0); HEMOGLOBIN 11.4 g/dL (12.0-16.0); MEAN CORPUSCULAR HEMOGLOB 28.1 pg (26.0-34.0); MEAN CORPUSCULAR VOLUME 87.9 fL (80-100); MEAN PLATELET VOLUME 10.3 fL (9.2-13.0); PLATELET COUNT 285 10/3/uL (150-400); RBC DISTRIBUTION WIDTH 14.8 % (12.0-16.0); RED CELL COUNT 4.05 10/6/uL (4.0-5.6); WHITE BLOOD CELLS 13.4 10/3/uL (4.5-10.5)
[2016-09-29 01:37] LABS: MANUAL DIFF YES %
[2016-09-29 01:49] LABS: BUN (BLOOD UREA NITROGEN) 11 MG/DL (6-23); CALCIUM, SERUM 9.1 MG/DL (8.5-10.4); CHLORIDE, SERUM 104 MMOL/L (96-112); CO2 (CARBON DIOXIDE) 29 MMOL/L (24-34); CREATININE 0.81 MG/DL (0.55-1.02); GFR AFRICAN AMERICAN 90 ML/MIN (>=60); GFR NON AFRICAN AMERICAN 77 ML/MIN (>=60); GLUCOSE, SERUM 194 MG/DL (60-99); POTASSIUM, SERUM 4.2 MMOL/L (3.5-5.3); SODIUM, SERUM 139 MMOL/L (135-148)
[2016-09-29 01:58] LABS: BASOPHILS 1 %; BASOPHILS ABSOLUTE (CALC) 0.13 10/3/uL (0.0-0.16); EOSINOPHILS 2 %; EOSINOPHILS ABSOLUTE (CALC) 0.27 10/3/uL (0.0-0.53); LYMPHOCYTES 40 %; LYMPHOCYTES ABSOLUTE (CALC) 5.36 10/3/uL (0.67-4.30); MONOCYTES 6 %; NEUTROPHILS ABSOLUTE (CALC) 6.83 10/3/uL (2.02-8.40); PLATELET ESTIMATE ADQ (ADEQUATE); RBC MORPHOLOGY NORM (NORMAL); SEGMENTED NEUTROPHIL (0) 51 %; TOTAL NUCLEATED CELLS 100
[2016-09-29 19:11] LABS: WBC (NOT ORDERED) (RFLEX) 0 (0-5)
[2016-09-29 20:13] LABS: ASCORBIC ACID (UR NOT ORDER) NEG (NEG); BILIRUBIN, URINE NEGATIVE (NEG); KETONE, URINE NEGATIVE (NEG); LEUKOCYTE ESTERASE(NOT OR NEG (NEG)
[2016-09-30 06:02] LABS: BASOPHILS 0.4 %; BASOPHILS ABSOLUTE 0.05 10/3/uL (0.0-0.16); EOSINOPHILS 3.8 %; EOSINOPHILS ABSOLUTE 0.47 10/3/uL (0.0-0.53); HEMATOCRIT 36.5 % (36.0-48.0); HEMOGLOBIN 11.9 g/dL (12.0-16.0); IMMATURE GRANULOCYTES 0.4 %; IMMATURE GRANULOCYTES ABSOLUTE 0.05 10/3/uL (0.0-0.11); LYMPHOCYTES 35.2 %; LYMPHOCYTES ABSOLUTE 4.35 10/3/uL (0.67-4.30); MEAN CORPUS HGB CONC 32.6 g/dL (32.0-36.0); MEAN CORPUSCULAR HEMOGLOB 28.5 pg (26.0-34.0); MEAN CORPUSCULAR VOLUME 87.5 fL (80-100); MEAN PLATELET VOLUME 10.2 fL (9.2-13.0); MONOCYTES 6.6 %; MONOCYTES ABSOLUTE 0.81 10/3/uL (0.21-1.20); NEUTROPHILS 53.6 %; NEUTROPHILS ABSOLUTE 6.62 10/3/uL (2.02-8.40); PLATELET COUNT 297 10/3/uL (150-400); RBC DISTRIBUTION WIDTH 14.7 % (12.0-16.0); RED CELL COUNT 4.17 10/6/uL (4.0-5.6); WHITE BLOOD CELLS 12.4 10/3/uL (4.5-10.5)
[2016-09-30 06:04] LABS: MANUAL DIFF NO %
[2016-09-30 06:20] LABS: % IRON SAT 13 % (20-50); BUN (BLOOD UREA NITROGEN) 11 MG/DL (6-23); CALCIUM, SERUM 9.5 MG/DL (8.5-10.4); CHLORIDE, SERUM 102 MMOL/L (96-112); CO2 (CARBON DIOXIDE) 26 MMOL/L (24-34); CREATININE 0.82 MG/DL (0.55-1.02); GFR AFRICAN AMERICAN 88 ML/MIN (>=60); GFR NON AFRICAN AMERICAN 76 ML/MIN (>=60); GLUCOSE, SERUM 195 MG/DL (60-99); IRON BINDING CAPACITY 419 MCG/DL (225-410); IRON, SERUM 55 MCG/DL (35-150); POTASSIUM, SERUM 4.1 MMOL/L (3.5-5.3); SODIUM, SERUM 137 MMOL/L (135-148)
[2016-10-01 04:56] LABS: BASOPHILS 0.4 %; BASOPHILS ABSOLUTE 0.05 10/3/uL (0.0-0.16); EOSINOPHILS 3.9 %; HEMATOCRIT 35.4 % (36.0-48.0); HEMOGLOBIN 11.3 g/dL (12.0-16.0); IMMATURE GRANULOCYTES 0.5 %; IMMATURE GRANULOCYTES ABSOLUTE 0.06 10/3/uL (0.0-0.11); MEAN CORPUS HGB CONC 31.9 g/dL (32.0-36.0); MEAN CORPUSCULAR VOLUME 87.8 fL (80-100); MEAN PLATELET VOLUME 10.5 fL (9.2-13.0); MONOCYTES 6.8 %; MONOCYTES ABSOLUTE 0.88 10/3/uL (0.21-1.20); NEUTROPHILS 57.4 %; PLATELET COUNT 314 10/3/uL (150-400); RBC DISTRIBUTION WIDTH 14.5 % (12.0-16.0); RED CELL COUNT 4.03 10/6/uL (4.0-5.6); WHITE BLOOD CELLS 12.9 10/3/uL (4.5-10.5)
[2016-10-01 04:57] LABS: MANUAL DIFF NO %
[2016-10-01 05:08] LABS: INTERNATIONAL NORMAL RATI 1.2 UNITS (-); PROTIME (NOT ORD) 15.2 SEC (12.0-14.5)
[2016-10-01 05:14] LABS: ALBUMIN 3.5 G/DL (3.5-5.0); BUN (BLOOD UREA NITROGEN) 12 MG/DL (6-23); CALCIUM, SERUM 9.3 MG/DL (8.5-10.4); CHLORIDE, SERUM 104 MMOL/L (96-112); CO2 (CARBON DIOXIDE) 26 MMOL/L (24-34); CREATININE 0.76 MG/DL (0.55-1.02); GFR AFRICAN AMERICAN 97 ML/MIN (>=60); GFR NON AFRICAN AMERICAN 83 ML/MIN (>=60); GLOBULIN 3.4 G/DL (2.5-4.1); GLUCOSE, SERUM 222 MG/DL (60-99); POTASSIUM, SERUM 4.2 MMOL/L (3.5-5.3); SGOT(AST) 82 U/L (5-40); SGPT(ALT) 91 U/L (5-65); SODIUM, SERUM 138 MMOL/L (135-148); TOTAL BILIRUBIN 0.3 MG/DL (0-1.2); TOTAL PROTEIN 6.9 G/DL (6.0-8.5)
[2016-10-01 05:17] LABS: ALKALINE PHOSPHATASE 105 U/L (45-117)
[2016-10-01 05:40] LABS: MAX AMP (ADP) 55.4 MM (35-68); TEG - ANGLE 74.2 DEG (53-72); TEG - COAGULATION INDEX 0.9 (-3 TO 3); TEG - MAXIMUM AMPLITUDE 71.6 MM (50-70); TEG - RATE 8.1 MIN (5.0-10.0); TEG PLAVIX/EFFIENT/TICLID(ADP) 31.8 % INHIB (< 40)
[2016-10-01 20:39] LABS: BE (BASE EXCESS) -2.5 MEQ/L (0 +/- 2.5); CARBOXYHEMOGLOBIN 0.3 % (0-3); HCO3 (ACTUAL BICARBONATE) 22.9 MEQ/L (23-27); HEMOBLOGIN CONTENT 10.8 G/DL (12-16); INSTRUMENT SERIAL # 11843; METHEMOGLOBIN 0.4 % (0-3); O2 CONTENT 14.8 VOL% (18-24); PCO2 (CO2 TENSION) 42 MMHG (35-45); PO2 (O2 TENSION) 112 MMHG (79-93); pH 7.36 (7.37-7.43)
[2016-10-01 20:40] LABS: MODE SIMV; OPERATOR ID 32193; SAMPLE Arterial; TIDAL VOLUME 600 ML
[2016-10-01 20:52] LABS: HEMOGLOBIN 9.5 g/dL (12.0-16.0); MEAN CORPUS HGB CONC 31.5 g/dL (32.0-36.0); MEAN CORPUSCULAR HEMOGLOB 27.5 pg (26.0-34.0); MEAN CORPUSCULAR VOLUME 87.3 fL (80-100); PLATELET COUNT 276 10/3/uL (150-400); RED CELL COUNT 3.46 10/6/uL (4.0-5.6)
[2016-10-01 20:53] LABS: HEMATOCRIT 30.2 % (36.0-48.0); WHITE BLOOD CELLS 26.8 10/3/uL (4.5-10.5)
[2016-10-01 20:54] LABS: MANUAL DIFF YES %
[2016-10-01 20:59] LABS: FIBRINOGEN 364 MG/DL (230-462); INTERNATIONAL NORMAL RATI 1.4 UNITS (-); PARTIAL THROMBO TIME 28.6 SEC (22.5-37.2); PROTIME (NOT ORD) 16.9 SEC (12.0-14.5)
[2016-10-01 21:05] LABS: BUN (BLOOD UREA NITROGEN) 13 MG/DL (6-23); CALCIUM, SERUM 9.4 MG/DL (8.5-10.4); CHLORIDE, SERUM 108 MMOL/L (96-112); CO2 (CARBON DIOXIDE) 26 MMOL/L (24-34); GFR AFRICAN AMERICAN 62 ML/MIN (>=60); GFR NON AFRICAN AMERICAN 53 ML/MIN (>=60); GLUCOSE, SERUM 177 MG/DL (60-99); SODIUM, SERUM 141 MMOL/L (135-148)
[2016-10-01 21:10] LABS: BAND NEUTROPHILS 10 %; EOSINOPHILS 1 %; EOSINOPHILS ABSOLUTE (CALC) 0.27 10/3/uL (0.0-0.53); IMMATURE GRANS ABSOLUTE (CALC) 0.27 10/3/uL (0.0-0.11); LYMPHOCYTES 6 %; LYMPHOCYTES ABSOLUTE (CALC) 1.61 10/3/uL (0.67-4.30); METAMYELOCYTES 1 %; NEUTROPHILS ABSOLUTE (CALC) 24.66 10/3/uL (2.02-8.40); PLATELET ESTIMATE ADQ (ADEQUATE); POLYCHROMASIA 1+ (2-5/OIF) (0-1/OIF); SEGMENTED NEUTROPHIL (0) 82 %; TOTAL NUCLEATED CELLS 100
[2016-10-01 23:43] LABS: BE (BASE EXCESS) -2.8 MEQ/L (0 +/- 2.5); CARBOXYHEMOGLOBIN 0.3 % (0-3); DEVICE NC; HCO3 (ACTUAL BICARBONATE) 21.2 MEQ/L (23-27); HEMOBLOGIN CONTENT 11.5 G/DL (12-16); INSTRUMENT SERIAL # 11843; METHEMOGLOBIN 0.4 % (0-3); O2 CONTENT 15.2 VOL% (18-24); OPERATOR ID 32193; PCO2 (CO2 TENSION) 34 MMHG (35-45); PO2 (O2 TENSION) 79 MMHG (79-93); SAMPLE Arterial; pH 7.41 (7.37-7.43)
[2016-10-02 03:28] LABS: BASOPHILS 0.1 %; BASOPHILS ABSOLUTE 0.01 10/3/uL (0.0-0.16); EOSINOPHILS 0 %; HEMATOCRIT 30.4 % (36.0-48.0); IMMATURE GRANULOCYTES 0.4 %; IMMATURE GRANULOCYTES ABSOLUTE 0.07 10/3/uL (0.0-0.11); LYMPHOCYTES 8.6 %; LYMPHOCYTES ABSOLUTE 1.61 10/3/uL (0.67-4.30); MANUAL DIFF NO %; MEAN CORPUS HGB CONC 32.9 g/dL (32.0-36.0); MEAN CORPUSCULAR HEMOGLOB 28.9 pg (26.0-34.0); MEAN CORPUSCULAR VOLUME 87.9 fL (80-100); MEAN PLATELET VOLUME 10.4 fL (9.2-13.0); MONOCYTES 3.1 %; MONOCYTES ABSOLUTE 0.57 10/3/uL (0.21-1.20); NEUTROPHILS 87.8 %; NEUTROPHILS ABSOLUTE 16.42 10/3/uL (2.02-8.40); PLATELET COUNT 258 10/3/uL (150-400); RBC DISTRIBUTION WIDTH 14.9 % (12.0-16.0); RED CELL COUNT 3.46 10/6/uL (4.0-5.6); WHITE BLOOD CELLS 18.7 10/3/uL (4.5-10.5)
[2016-10-02 03:34] LABS: INTERNATIONAL NORMAL RATI 1.3 UNITS (-); PROTIME (NOT ORD) 16.5 SEC (12.0-14.5)
[2016-10-02 03:43] LABS: CALCIUM, SERUM 8.8 MG/DL (8.5-10.4); CHLORIDE, SERUM 112 MMOL/L (96-112); CO2 (CARBON DIOXIDE) 25 MMOL/L (24-34); CREATININE 1.04 MG/DL (0.55-1.02); GFR AFRICAN AMERICAN 66 ML/MIN (>=60); GFR NON AFRICAN AMERICAN 57 ML/MIN (>=60); GLUCOSE, SERUM 144 MG/DL (60-99); POTASSIUM, SERUM 4.6 MMOL/L (3.5-5.3); SODIUM, SERUM 145 MMOL/L (135-148)
[2016-10-02 03:44] LABS: BUN (BLOOD UREA NITROGEN) 17 MG/DL (6-23)
[2016-10-02 23:08] LABS: HEMATOCRIT 31.1 % (36.0-48.0); HEMOGLOBIN 9.9 g/dL (12.0-16.0)
[2016-10-02 23:20] LABS: POTASSIUM, SERUM 4.5 MMOL/L (3.5-5.3)
[2016-10-03 06:50] LABS: BASOPHILS 0.1 %; BASOPHILS ABSOLUTE 0.02 10/3/uL (0.0-0.16); EOSINOPHILS 0.1 %; EOSINOPHILS ABSOLUTE 0.02 10/3/uL (0.0-0.53); HEMATOCRIT 29.5 % (36.0-48.0); HEMOGLOBIN 9.4 g/dL (12.0-16.0); IMMATURE GRANULOCYTES 0.7 %; IMMATURE GRANULOCYTES ABSOLUTE 0.18 10/3/uL (0.0-0.11); LYMPHOCYTES 11.2 %; LYMPHOCYTES ABSOLUTE 2.78 10/3/uL (0.67-4.30); MEAN CORPUS HGB CONC 31.9 g/dL (32.0-36.0); MEAN CORPUSCULAR HEMOGLOB 28.7 pg (26.0-34.0); MEAN CORPUSCULAR VOLUME 90.2 fL (80-100); MEAN PLATELET VOLUME 10.8 fL (9.2-13.0); MONOCYTES 11.2 %; MONOCYTES ABSOLUTE 2.78 10/3/uL (0.21-1.20); NEUTROPHILS 76.7 %; NEUTROPHILS ABSOLUTE 19.02 10/3/uL (2.02-8.40); PLATELET COUNT 285 10/3/uL (150-400); RBC DISTRIBUTION WIDTH 15.6 % (12.0-16.0); RED CELL COUNT 3.27 10/6/uL (4.0-5.6); WHITE BLOOD CELLS 24.8 10/3/uL (4.5-10.5)
[2016-10-03 06:51] LABS: MANUAL DIFF NO %
[2016-10-03 07:00] LABS: BUN (BLOOD UREA NITROGEN) 34 MG/DL (6-23); CALCIUM, SERUM 8.5 MG/DL (8.5-10.4); CHLORIDE, SERUM 105 MMOL/L (96-112); CO2 (CARBON DIOXIDE) 25 MMOL/L (24-34); CREATININE 1.56 MG/DL (0.55-1.02); GFR AFRICAN AMERICAN 41 ML/MIN (>=60); GFR NON AFRICAN AMERICAN 35 ML/MIN (>=60); GLUCOSE, SERUM 154 MG/DL (60-99); POTASSIUM, SERUM 4.7 MMOL/L (3.5-5.3); SODIUM, SERUM 138 MMOL/L (135-148)
[2016-10-04 04:41] LABS: BUN (BLOOD UREA NITROGEN) 36 MG/DL (6-23); CALCIUM, SERUM 8.6 MG/DL (8.5-10.4); CHLORIDE, SERUM 105 MMOL/L (96-112); CO2 (CARBON DIOXIDE) 23 MMOL/L (24-34); CREATININE 1.36 MG/DL (0.55-1.02); GFR AFRICAN AMERICAN 48 ML/MIN (>=60); GFR NON AFRICAN AMERICAN 41 ML/MIN (>=60); POTASSIUM, SERUM 4.4 MMOL/L (3.5-5.3); SODIUM, SERUM 137 MMOL/L (135-148)
[2016-10-04 04:43] LABS: GLUCOSE, SERUM 185 MG/DL (60-99)
[2016-10-04 04:48] LABS: BASOPHILS 0.1 %; BASOPHILS ABSOLUTE 0.03 10/3/uL (0.0-0.16); EOSINOPHILS 0.3 %; EOSINOPHILS ABSOLUTE 0.07 10/3/uL (0.0-0.53); HEMATOCRIT 28.5 % (36.0-48.0); IMMATURE GRANULOCYTES 0.8 %; IMMATURE GRANULOCYTES ABSOLUTE 0.17 10/3/uL (0.0-0.11); LYMPHOCYTES 17.9 %; LYMPHOCYTES ABSOLUTE 3.93 10/3/uL (0.67-4.30); MEAN CORPUS HGB CONC 31.6 g/dL (32.0-36.0); MEAN CORPUSCULAR HEMOGLOB 28.4 pg (26.0-34.0); MEAN CORPUSCULAR VOLUME 89.9 fL (80-100); MEAN PLATELET VOLUME 10.6 fL (9.2-13.0); MONOCYTES 10.6 %; MONOCYTES ABSOLUTE 2.32 10/3/uL (0.21-1.20); NEUTROPHILS 70.3 %; NEUTROPHILS ABSOLUTE 15.43 10/3/uL (2.02-8.40); PLATELET COUNT 280 10/3/uL (150-400); RBC DISTRIBUTION WIDTH 15.7 % (12.0-16.0); RED CELL COUNT 3.17 10/6/uL (4.0-5.6)
[2016-10-04 04:50] LABS: MANUAL DIFF NO %
[2016-10-06 06:33] LABS: BASOPHILS 0.2 %; BASOPHILS ABSOLUTE 0.03 10/3/uL (0.0-0.16); EOSINOPHILS 4.3 %; EOSINOPHILS ABSOLUTE 0.61 10/3/uL (0.0-0.53); HEMATOCRIT 27.2 % (36.0-48.0); HEMOGLOBIN 8.7 g/dL (12.0-16.0); IMMATURE GRANULOCYTES 0.8 %; IMMATURE GRANULOCYTES ABSOLUTE 0.11 10/3/uL (0.0-0.11); LYMPHOCYTES 23.5 %; LYMPHOCYTES ABSOLUTE 3.32 10/3/uL (0.67-4.30); MANUAL DIFF NO %; MEAN CORPUSCULAR HEMOGLOB 28.6 pg (26.0-34.0); MEAN CORPUSCULAR VOLUME 89.5 fL (80-100); MEAN PLATELET VOLUME 10.1 fL (9.2-13.0); MONOCYTES 10.3 %; MONOCYTES ABSOLUTE 1.46 10/3/uL (0.21-1.20); NEUTROPHILS 60.9 %; NEUTROPHILS ABSOLUTE 8.62 10/3/uL (2.02-8.40); PLATELET COUNT 322 10/3/uL (150-400); RBC DISTRIBUTION WIDTH 15.4 % (12.0-16.0); RED CELL COUNT 3.04 10/6/uL (4.0-5.6); WHITE BLOOD CELLS 14.2 10/3/uL (4.5-10.5)
[2016-10-06 06:56] LABS: BUN (BLOOD UREA NITROGEN) 25 MG/DL (6-23); CALCIUM, SERUM 8.6 MG/DL (8.5-10.4); CHLORIDE, SERUM 109 MMOL/L (96-112); CO2 (CARBON DIOXIDE) 27 MMOL/L (24-34); CREATININE 0.92 MG/DL (0.55-1.02); GFR AFRICAN AMERICAN 77 ML/MIN (>=60); GFR NON AFRICAN AMERICAN 66 ML/MIN (>=60); GLUCOSE, SERUM 94 MG/DL (60-99); POTASSIUM, SERUM 4.1 MMOL/L (3.5-5.3); SODIUM, SERUM 137 MMOL/L (135-148)
[2016-10-06] MEDS ORDERED: ASAB PO (13:16)
[2016-10-06] MEDS ORDERED: LIPITOR40 PO (13:17)
[2016-10-06] MEDS ORDERED: PLAVIX PO (13:20)
[2016-10-06] MEDS ORDERED: NORCO1 TAB PO (13:21)
== END 2016-10-06 16:09 | disposition home or self-care (01) | DRG 234 ==
LOC: CORLMH 09:42 → SSU1 09:55 → 7NO 10:00 → SDC/OF 10-01 17:26 → CVICU 10-01 18:48 → 5NO 10-02 17:28
PROVIDERS: Internal Medicine Cardiovascular Disease; Internal Medicine Interventional Cardiology; Nurse Practitioner Family; Thoracic Surgery (Cardiothoracic Vascular Surgery)
PROC: 4A023N7 Measurement of Cardiac Sampling and Pressure, Left Heart, Percutaneous Approach (ICD-10-PCS; principal; 2016-09-27)
PROC: 021109W Bypass Coronary Artery, Two Arteries from Aorta with Autologous Venous Tissue, Open Approach (ICD-10-PCS; 2016-09-27)
PROC: B2111ZZ Fluoroscopy of Multiple Coronary Arteries using Low Osmolar Contrast (ICD-10-PCS; 2016-09-27)
PROC: B2151ZZ Fluoroscopy of Left Heart using Low Osmolar Contrast (ICD-10-PCS; 2016-09-27)
PROC: 02100Z9 Bypass Coronary Artery, One Artery from Left Internal Mammary, Open Approach (ICD-10-PCS; 2016-09-27)
PROC: 0PH000Z Insertion of Rigid Plate Internal Fixation Device into Sternum, Open Approach (ICD-10-PCS; 2016-10-01)
PROC: 5A1221Z Performance of Cardiac Output, Continuous (ICD-10-PCS; 2016-10-01)
PROC: B246ZZ4 Ultrasonography of Right and Left Heart, Transesophageal (ICD-10-PCS; 2016-10-01)
PROC: 06BQ4ZZ Excision of Left Saphenous Vein, Percutaneous Endoscopic Approach (ICD-10-PCS; 2016-10-01 15:30)
DX: I25.110 Atherosclerotic heart disease of native coronary artery with unstable angina pectoris (principal); N17.9 Acute kidney failure, unspecified; E66.01 Morbid (severe) obesity due to excess calories; I10 Essential (primary) hypertension; E11.9 Type 2 diabetes mellitus without complications; K21.9 Gastro-esophageal reflux disease without esophagitis; F41.9 Anxiety disorder, unspecified; E78.5 Hyperlipidemia, unspecified; K44.9 Diaphragmatic hernia without obstruction or gangrene; Z68.36 Body mass index [BMI] 36.0-36.9, adult; Z79.82 Long term (current) use of aspirin; Z79.4 Long term (current) use of insulin; Z79.84 Long term (current) use of oral hypoglycemic drugs; Z87.891 Personal history of nicotine dependence; Z90.710 Acquired absence of both cervix and uterus; Z82.49 Family history of ischemic heart disease and other diseases of the circulatory system; Z82.3 Family history of stroke; Z88.0 Allergy status to penicillin; Z88.1 Allergy status to other antibiotic agents; Z88.5 Allergy status to narcotic agent; Z79.899 Other long term (current) drug therapy; G47.33 Obstructive sleep apnea (adult) (pediatric)
CPT/HCPCS: 36415; 71010; 71020; 80048; 80053; 80061; 81001; 82330; 82803; 82805; 82947; 82962; 83036; 83540; 83550; 83735; 84132; 84295; 85014; 85018; 85025; 85347; 85384; 85576; 85576-59; 85610; 85730; 86850; 86900; 86901; 93005; 93312; 93320; 93325; 93458; 94002; 94640; 94660; 94770; 99152; 99153; A9270-GY; C1713; C1769; C1887; C1894; G0365; J1644; J2150; J2250; J2370; J2405; J2440; J2550; J2720; J2930; J3010; J3370; J3475; J3480; P9045; P9047; Q9967